=== PATIENT | male | born 1950 | race Caucasian/White ===

== ENCOUNTER 2021-02-17 01:27 | Inpatient (IN) | payer OTHER ==
[2021-02-17 22:21] VITALS: BMI 22.5
[2021-02-18] MEDS ORDERED: Acetaminophen 325 MG TAB PO PRN (03:04)
[2021-02-18] MEDS: Dexamethasone 4 mg/ml Vial SLOW IVP SCH ×4 (04:00→21:34)
[2021-02-18] MEDS: cefTRIAXone\\ROCEPHIN 1 GM in Sodium Chloride 0.9% 100 ML IVPB SCH (04:00)
[2021-02-18] MEDS ORDERED: HYDROcodone/Acetaminophen 5/325 mg Tablet PO PRN (08:13)
[2021-02-18] MEDS ORDERED: Ondansetron PF 4 MG/2 ML Vial IVP PRN (08:13)
[2021-02-18] MEDS ORDERED: Loperamide HCl 2 MG CAP PO PRN (08:13)
[2021-02-18] MEDS ORDERED: GUAIFENESIN SF SOLN 200 MG/10 ML UDCUP PO PRN (08:13)
[2021-02-18] MEDS ORDERED: Cepastat Lozenges 1 LOZ PO PRN (08:13)
[2021-02-18] MEDS ORDERED: Bisacodyl 5 MG TAB PO PRN (08:13)
[2021-02-18] MEDS ORDERED: Loratadine 10 MG TAB PO PRN (08:13)
[2021-02-18] MEDS ORDERED: Senokot S 8.6-50 MG TAB PO PRN (08:13)
[2021-02-18] MEDS ORDERED: hydrALAZINE 20 MG/ML VIAL SLOW IVP PRN (08:13)
[2021-02-18] MEDS ORDERED: FLU VACC QS2021-22(65YR UP)/PF 240 MCG/0.7 ML SYRINGE IM ONE (09:00)
[2021-02-18] MEDS ORDERED: Atorvastatin Calcium 40 MG TAB PO SCH (09:00)
[2021-02-18] MEDS ORDERED: Aspirin 81 mg Enteric Coated Tablet PO SCH (09:00)
[2021-02-18] MEDS ORDERED: Lisinopril 20 MG TAB PO SCH (09:00)
[2021-02-18] MEDS: Cholecalciferol 1,000 UNITS (25 MCG) TAB PO SCH (09:20)
[2021-02-18] MEDS: Cilostazol 100 MG TAB PO SCH ×2 (09:20→17:39)
[2021-02-18 09:32] LABS: #Lymphocytes 0.7 thou/uL (1.20-3.40); #Monocytes 0.3 thou/uL (0.11-0.59); #Neutrophils 10.2 thou/uL (1.40-6.50); %Eosinophils 0.1 % (0.0-10.0); %Lymphocytes 6.6 % (21.0-51.0); %Monocytes 2.8 % (0.0-10.0); %Neutrophils 90.5 % (42.0-75.0); Hemoglobin 13.7 g/dL (14.0-18.0); Mean Corpuscular HGB CONC 33.5 g/dL (32.0-36.0); Mean Corpuscular Hemoglobin 30.4 pg (27.0-31.0); Mean Corpuscular Volume 90.8 fL (78.0-98.0); Mean Platelet Volume 7.8 fL (7.4-10.4); Platelet Count 272 thou/uL (130-400); RBC Distribution Width 13.3 % (11.5-14.5); Red Blood Cell (RBC) Count 4.52 mill/uL (4.70-6.10); White Blood Cell (WBC) Count 11.2 thou/uL (4.8-10.8)
[2021-02-18 10:00] LABS: Anion Gap 14 mmol/L (10-20); BUN (Urea Nitrogen) 21 mg/dL (8.4-25.7); Calc. Creatinine Clearance 65 mL/min (70-130); Calcium 9.5 mg/dL (7.8-10.44); Carbon Dioxide 20 mmol/L (23-31); Cardiac Risk 5.8 (Less than 4.5); Chloride 103 mmol/L (98-107); Cholesterol 209 mg/dl (< 200 Desired); Glucose 123 mg/dL (80-115); HDL Cholesterol 36 mg/dL (>60 Neg Risk); LDL Cholesterol, Calculated 145 mg/dL; Potassium 3.8 mmol/L (3.5-5.1); Sodium 133 mmol/L (136-145); Triglycerides 142 mg/dL (Less than 150)
[2021-02-18] MEDS ORDERED: Iopamidol-370 76% 500 ML 1 ML ONE (12:29)
[2021-02-18] MEDS ORDERED: Magnevist 469MG/ML 20 ML VIAL ONE (12:37)
[2021-02-19] MEDS: Dexamethasone 4 mg/ml Vial SLOW IVP SCH ×2 (03:48→09:53)
[2021-02-19] MEDS: cefTRIAXone\\ROCEPHIN 1 GM in Sodium Chloride 0.9% 100 ML IVPB SCH (03:48)
[2021-02-19] MEDS ORDERED: hydrALAZINE 20 MG/ML VIAL SLOW IVP PRN (06:25)
[2021-02-19 08:11] VITALS: BP 162/78; TEMP 97.7
[2021-02-19] MEDS ORDERED: Atorvastatin Calcium 40 MG TAB PO SCH (09:00)
[2021-02-19] MEDS ORDERED: Lisinopril 10 MG TAB PO SCH (09:00)
[2021-02-19] MEDS ORDERED: levETIRAcetam 500 MG TAB PO SCH (09:00)
[2021-02-19] MEDS: Cholecalciferol 1,000 UNITS (25 MCG) TAB PO SCH (09:54)
[2021-02-19] MEDS: Cilostazol 100 MG TAB PO SCH (09:55)
== END 2021-02-19 12:47 | disposition home or self-care (01) | DRG 54 ==
LOC: NEURO 01:27
PROVIDERS: ADMIT Internal Medicine; ATTEND Internal Medicine
DX: C71.9 Malignant neoplasm of brain, unspecified (principal); G93.6 Cerebral edema; N39.0 Urinary tract infection, site not specified; E87.1 Hypo-osmolality and hyponatremia; Z20.822 Contact with and (suspected) exposure to COVID-19; I10 Essential (primary) hypertension; F17.210 Nicotine dependence, cigarettes, uncomplicated; I73.9 Peripheral vascular disease, unspecified; I25.10 Atherosclerotic heart disease of native coronary artery without angina pectoris; E78.5 Hyperlipidemia, unspecified; Z85.46 Personal history of malignant neoplasm of prostate; Z88.0 Allergy status to penicillin; Z79.82 Long term (current) use of aspirin; Z79.899 Other long term (current) drug therapy; Z85.51 Personal history of malignant neoplasm of bladder
CPT/HCPCS: 36415; 70553; 71260; 74177; 80048; 80061; 83930; 83935; 85025; A9579; J0696; J1100; J3490; Q9967

== ENCOUNTER 2021-03-02 15:01 | Outpatient (CLI) | payer OTHER ==
[2021-03-02 16:20] LABS: Mean Corpuscular Hemoglobin 29.8 pg (27.0-33.0); Mean Corpuscular Volume 87.5 fl (81.2-95.1); Mean Platelet Volume 10.9 fl (7.4-10.4); Platelet Count 295 10x3/uL (150-450); RBC Distribution Width 15.2 % (11.5-14.5); Red Blood Cell (RBC) Count 5.04 10x6/uL (4.32-5.72); White Blood Cell (WBC) Count 14.2 10x3/uL (3.5-10.5)
[2021-03-02 16:39] LABS: INR-International Normal Ratio 0.9; PTT 24.5 sec (22.0-33.0); Prothrombin Time 10.5 sec (9.5-12.1)
[2021-03-03 11:22] LABS: SARS-CoV-2 PCR by NAA Not Detected (NotDetected)
== END 2021-03-02 15:02 | disposition home or self-care (01) ==
LOC: LABBT 15:01
PROVIDERS: ATTEND Neurological Surgery
DX: Z01.812 Encounter for preprocedural laboratory examination (principal); Z20.822 Contact with and (suspected) exposure to COVID-19
CPT/HCPCS: 85027; 85610; 85730; U0003; U0005

== ENCOUNTER 2021-03-02 15:30 | Inpatient (IN) | payer OTHER ==
[2021-03-07] MEDS ORDERED: Lidocaine 0.5%/Epinephrine 1:200,000 50 ml Vial ONE (06:15)
[2021-03-07] MEDS ORDERED: Bacitracin Zinc Ointment 30 gm TUBE ONE (06:15)
[2021-03-07] MEDS ORDERED: Neomycin-Polymyxin 1 ML AMP ONE (06:15)
[2021-03-07] MEDS ORDERED: Thrombin 5000 UNITS/5 ML VIAL ONE (06:15)
[2021-03-07] MEDS ORDERED: Clindamycin/D5W 900 mg/50 ml Premix Bag ONE (06:20)
[2021-03-07] MEDS ORDERED: Levofloxacin 500 mg/D5W 100 ml Premix Bag ONE (06:20)
[2021-03-07] MEDS ORDERED: HYDROcodone/Acetaminophen 7.5/325 mg Tablet PO PRN (06:26)
[2021-03-07] MEDS ORDERED: Labetalol HCl 100 MG/20 ML VIAL SLOW IVP PRN (06:26)
[2021-03-07] MEDS ORDERED: hydrALAZINE 20 MG/ML VIAL SLOW IVP PRN (06:26)
[2021-03-07] MEDS ORDERED: diphenhydrAMINE 50 MG/ML VIAL IVP PRN (06:26)
[2021-03-07] MEDS ORDERED: Ondansetron PF 4 MG/2 ML Vial IVP PRN (06:26)
[2021-03-07] MEDS ORDERED: Docusate 100 MG CAP PO PRN (06:26)
[2021-03-07] MEDS ORDERED: Promethazine HCl 25 MG/ML VIAL IM PRN ×2 (06:26→09:31)
[2021-03-07] MEDS ORDERED: Acetaminophen 325 MG TAB PO PRN (06:26)
[2021-03-07] MEDS ORDERED: Mag-Al 1200 mg/1200 mg/30 ML UDCUP PO PRN (06:26)
[2021-03-07] MEDS ORDERED: Pantoprazole 40 MG GRANULES PACKET PO SCH (06:30)
[2021-03-07] MEDS ORDERED: Morphine 4 MG/ML VIAL SLOW IVP PRN (06:39)
[2021-03-07] MEDS ORDERED: Dexmedetomidine 200 MCG/2 ML VIAL ONE (06:40)
[2021-03-07] MEDS ORDERED: levETIRAcetam 500 MG/100 ML PREMIX BAG ONE (06:41)
[2021-03-07] MEDS ORDERED: Albumin 25% 0 ML ONE ×2 (06:41)
[2021-03-07] MEDS ORDERED: levETIRAcetam in NS 0 ML ONE (06:41)
[2021-03-07] MEDS ORDERED: Vecuronium 10 MG VIAL ONE (06:42)
[2021-03-07] MEDS ORDERED: Propofol 1,000 MG/100 ML VIAL IV ONE (06:48)
[2021-03-07] MEDS ORDERED: Famotidine/PF 20 mg/2ml Vial ONE (06:58)
[2021-03-07] MEDS ORDERED: Lidocaine 2% Jelly 5 ML TUBE ONE (07:00)
[2021-03-07] MEDS ORDERED: Pantoprazole 40 MG VIAL IVP SCH (07:00)
[2021-03-07] MEDS ORDERED: Midazolam HCl 2 mg/2 ml Vial ONE (07:00)
[2021-03-07] MEDS ORDERED: Dexamethasone 20 MG/5 ML VIAL ONE (07:05)
[2021-03-07] MEDS ORDERED: Lidocaine 1% PF 5 ML VIAL ONE ×2 (07:05)
[2021-03-07] MEDS ORDERED: Rocuronium Bromide 10 MG/ML (10ML VIAL) ONE (07:05)
[2021-03-07] MEDS ORDERED: Succinylcholine 200 MG/10 ml SYRINGE FS ONE (07:05)
[2021-03-07] MEDS ORDERED: Ondansetron PF 4 MG/2 ML Vial ONE (07:05)
[2021-03-07] MEDS ORDERED: PROPOFOL 200 MG/20 ML VIAL ONE (07:05)
[2021-03-07] MEDS ORDERED: Fentanyl 100 MCG/2 ML VIAL ONE (07:32)
[2021-03-07] MEDS ORDERED: Dexamethasone 1 MG TAB PO SCH (09:00)
[2021-03-07] MEDS ORDERED: SUGAMMADEX SODIUM 200 MG/2 ML VIAL ONE (09:25)
[2021-03-07] MEDS ORDERED: Promethazine HCl 25 MG/ML VIAL IVPB PRN (09:31)
[2021-03-07] MEDS ORDERED: Ondansetron HCl/PF 4 MG/2 ML Vial IVP PRN (09:31)
[2021-03-07] MEDS: Clindamycin/D5W 900 MG in Premix Bag 1 BAG IVPB SCH ×3 (11:18→16:55)
[2021-03-07] MEDS: Dexamethasone 4 mg/ml Vial SLOW IVP SCH ×3 (11:18→16:54)
[2021-03-07] MEDS: Sodium Chloride 0.9% 1,000 ML IV SCH ×2 (11:18→16:33)
[2021-03-07] MEDS: levETIRAcetam 500 MG TAB PO SCH ×2 (11:19→19:35)
[2021-03-07] MEDS: Cholecalciferol 1,000 UNITS (25 MCG) TAB PO SCH (11:20)
[2021-03-07] MEDS: Lisinopril 10 MG TAB PO SCH (11:20)
[2021-03-07] MEDS: Pantoprazole 40 MG VIAL IVP SCH ×2 (11:22→19:35)
[2021-03-07] MEDS: HYDROcodone/Acetaminophen 10/325 mg Tablet PO PRN ×2 (11:22→19:35)
[2021-03-07] MEDS: hydrALAZINE 20 MG/ML VIAL SLOW IVP PRN ×2 (11:23→12:46)
[2021-03-07 12:04] VITALS: BMI 21.7
[2021-03-07] MEDS ORDERED: niCARdipine 40MG In NaCl 40 MG/200 ML BAG IVPB PRN (13:00)
[2021-03-07] MEDS ORDERED: niCARdipine 25 MG in Sodium Chloride 0.9% 250 ML 250 ML IVPB SCH (13:30)
[2021-03-07] MEDS: Atorvastatin Calcium 40 MG TAB PO SCH (19:35)
[2021-03-07] MEDS ORDERED: niCARdipine 25 MG in Sodium Chloride 0.9% 250 ML 240 ML IVPB PRN (20:10)
[2021-03-07] MEDS ORDERED: Polyethylene Glycol 3350 17 GM Packet PO PRN (20:13)
[2021-03-07] MEDS ORDERED: Electrolyte Replacement Protocol 1 EACH FS PRN (20:15)
[2021-03-07] MEDS: Docusate 100 MG CAP PO SCH (20:52)
[2021-03-08] MEDS: Dexamethasone 4 mg/ml Vial SLOW IVP SCH ×5 (00:10→23:54)
[2021-03-08] MEDS: HYDROcodone/Acetaminophen 10/325 mg Tablet PO PRN (01:32)
[2021-03-08] MEDS: hydrALAZINE 20 MG/ML VIAL SLOW IVP PRN (02:18)
[2021-03-08 04:59] LABS: Hemoglobin 15.6 g/dL (14.0-18.0); Mean Corpuscular HGB CONC 34.6 g/dL (32.0-36.0); Mean Corpuscular Hemoglobin 31.4 pg (27.0-31.0); Mean Corpuscular Volume 90.9 fL (78.0-98.0); Red Blood Cell (RBC) Count 4.97 mill/uL (4.70-6.10); White Blood Cell (WBC) Count 20.4 thou/uL (4.8-10.8)
[2021-03-08 05:00] LABS: Mean Platelet Volume 8.3 fL (7.4-10.4); Platelet Count 221 thou/uL (130-400)
[2021-03-08] MEDS: Sodium Chloride 0.9% 1,000 ML IV SCH (05:22)
[2021-03-08 05:26] LABS: Anion Gap 11 mmol/L (10-20); BUN (Urea Nitrogen) 24 mg/dL (8.4-25.7); Calc. Creatinine Clearance 62 mL/min (70-130); Calcium 8.7 mg/dL (7.8-10.44); Carbon Dioxide 23 mmol/L (23-31); Chloride 96 mmol/L (98-107); Glucose 118 mg/dL (80-115); Magnesium 2.2 mg/dL (1.6-2.6); Sodium 125 mmol/L (136-145)
[2021-03-08 06:11] LABS: Band 12 % (5-11); Lymphocytes 8 % (21-51); MDiff Complete? YES; Monocytes 2 % (0-10); Neutrophil 77 % (42-75); Reactive Lymphocytes 1 % (0-10)
[2021-03-08] MEDS: Cholecalciferol 1,000 UNITS (25 MCG) TAB PO SCH (08:20)
[2021-03-08] MEDS: Lisinopril 10 MG TAB PO SCH (08:20)
[2021-03-08] MEDS: Multivit, Therapeutic 1 TAB PO SCH (08:20)
[2021-03-08] MEDS: Docusate 100 MG CAP PO SCH ×2 (08:20→20:50)
[2021-03-08] MEDS: levETIRAcetam 500 MG TAB PO SCH ×2 (08:20→20:50)
[2021-03-08] MEDS: Pantoprazole 40 MG VIAL IVP SCH ×2 (08:21→20:49)
[2021-03-08 14:48] LABS: Anion Gap 18 mmol/L (10-20); BUN (Urea Nitrogen) 26 mg/dL (8.4-25.7); Calc. Creatinine Clearance 59 mL/min (70-130); Carbon Dioxide 14 mmol/L (23-31); Chloride 97 mmol/L (98-107); Glucose 95 mg/dL (80-115); Potassium 5.7 mmol/L (3.5-5.1); Sodium 123 mmol/L (136-145)
[2021-03-08] MEDS ORDERED: Sodium Bicarbonate Tab 325 MG TAB PO SCH (16:15)
[2021-03-08] MEDS: Sodium Bicarbonate Tab 325 MG TAB PO SCH (20:50)
[2021-03-08] MEDS: Atorvastatin Calcium 40 MG TAB PO SCH (20:50)
[2021-03-09 04:43] LABS: Anion Gap 12 mmol/L (10-20); BUN (Urea Nitrogen) 25 mg/dL (8.4-25.7); Calc. Creatinine Clearance 58 mL/min (70-130); Calcium 8.5 mg/dL (7.8-10.44); Carbon Dioxide 24 mmol/L (23-31); Chloride 98 mmol/L (98-107); Glucose 115 mg/dL (83-110); Potassium 5.2 mmol/L (3.5-5.1); Sodium 129 mmol/L (136-145)
[2021-03-09] MEDS: Dexamethasone 4 mg/ml Vial SLOW IVP SCH ×3 (06:12→17:06)
[2021-03-09] MEDS: Multivit, Therapeutic 1 TAB PO SCH (09:50)
[2021-03-09] MEDS: Cholecalciferol 1,000 UNITS (25 MCG) TAB PO SCH (09:50)
[2021-03-09] MEDS: Pantoprazole 40 MG VIAL IVP SCH (09:50)
[2021-03-09] MEDS: Sodium Bicarbonate Tab 325 MG TAB PO SCH (09:51)
[2021-03-09] MEDS: Docusate 100 MG CAP PO SCH (09:51)
[2021-03-09] MEDS: levETIRAcetam 500 MG TAB PO SCH (09:51)
[2021-03-09] MEDS: hydrALAZINE 20 MG/ML VIAL SLOW IVP PRN (17:06)
[2021-03-09 18:58] VITALS: BP 143/77; TEMP 97.7
[2021-03-10] MEDS ORDERED: Dexamethasone 4 mg/ml Vial SLOW IVP SCH (12:00)
[2021-03-13] MEDS ORDERED: Dexamethasone 4 mg/ml Vial SLOW IVP SCH (12:00)
== END 2021-03-09 18:58 | disposition home or self-care (01) | DRG 25 ==
LOC: SURG A 03-07 06:00 → CCU 03-07 10:41 → SURG A 03-08 07:42
PROVIDERS: ADMIT Neurological Surgery; ATTEND Neurological Surgery
PROC: 00B00ZZ Excision of Brain, Open Approach (ICD-10-PCS; principal; 2021-03-07)
DX: C71.3 Malignant neoplasm of parietal lobe (principal); G93.6 Cerebral edema; E87.1 Hypo-osmolality and hyponatremia; K59.00 Constipation, unspecified; E07.81 Sick-euthyroid syndrome; I10 Essential (primary) hypertension; E78.5 Hyperlipidemia, unspecified; F17.210 Nicotine dependence, cigarettes, uncomplicated; Z88.0 Allergy status to penicillin; Z92.21 Personal history of antineoplastic chemotherapy; Z91.81 History of falling; Z85.46 Personal history of malignant neoplasm of prostate; Z85.51 Personal history of malignant neoplasm of bladder; Z80.1 Family history of malignant neoplasm of trachea, bronchus and lung; Z82.49 Family history of ischemic heart disease and other diseases of the circulatory system; Z79.82 Long term (current) use of aspirin; Z79.899 Other long term (current) drug therapy
CPT/HCPCS: 36415; 70553; 80048; 83735; 84443; 84481; 85025; 86850; 86900; 86901; 88307; 88331; 88334; 88341; 88342; C1713; C1769; C9113; J0360; J1100; J1200; J1642; J1953; J1956; J2001; J2250; J2405; J2704; J3010; J3490; J7050; P9047; S0028

== ENCOUNTER 2021-08-02 11:52 | Outpatient (CLI) | payer OTHER | END 2021-08-02 11:53 | disposition home or self-care (01) | LOC: MRI 11:52 | PROVIDERS: ATTEND Radiology Radiation Oncology | DX: C71.9 Malignant neoplasm of brain, unspecified (principal); Z98.890 Other specified postprocedural states | CPT/HCPCS: 70553 ==

== ENCOUNTER 2021-10-16 21:25 | Inpatient (IN) | payer MEDICARE, OTHER ==
[2021-10-17] MEDS ORDERED: Ondansetron ODT 8 MG TAB PO PRN (01:02)
[2021-10-17] MEDS ORDERED: Acetaminophen 650 MG Suppository PR PRN (01:04)
[2021-10-17] MEDS ORDERED: Ondansetron PF 4 MG/2 ML Vial IVP PRN (01:15)
[2021-10-17] MEDS ORDERED: Acetaminophen 325 MG TAB PO PRN (01:15)
[2021-10-17 01:19] VITALS: BMI 20.3
[2021-10-17] MEDS ORDERED: Dexamethasone 10 MG/ML VIAL SLOW IVP SCH (01:30)
[2021-10-17] MEDS ORDERED: hydrALAZINE 20 MG/ML VIAL SLOW IVP PRN (02:41)
[2021-10-17] MEDS: Sodium Chloride 0.9% 1,000 ML IV SCH ×2 (02:54→20:40)
[2021-10-17] MEDS: Nicotine 21 MG PATCH TD SCH (02:54)
[2021-10-17 05:14] LABS: #Lymphocytes 0.3 thou/uL (1.20-3.40); #Monocytes 0.2 thou/uL (0.11-0.59); %Basophils 0.2 % (0.0-1.0); %Eosinophils 0.6 % (0.0-10.0); %Lymphocytes 5.7 % (21.0-51.0); %Monocytes 5.4 % (0.0-10.0); %Neutrophils 88.1 % (42.0-75.0); Hemoglobin 11.6 g/dL (14.0-18.0); Mean Corpuscular HGB CONC 34.6 g/dL (32.0-36.0); Mean Corpuscular Hemoglobin 32.8 pg (27.0-31.0); Mean Corpuscular Volume 94.8 fL (78.0-98.0); Mean Platelet Volume 7.9 fL (7.4-10.4); Platelet Count 125 thou/uL (130-400); RBC Distribution Width 16.3 % (11.5-14.5); Red Blood Cell (RBC) Count 3.54 mill/uL (4.70-6.10); White Blood Cell (WBC) Count 4.5 thou/uL (4.8-10.8)
[2021-10-17 05:30] LABS: ALT (SGPT) 20 U/L (8-55); AST (SGOT) 18 U/L (5-34); Albumin 3.5 g/dL (3.4-4.8); Alkaline Phosphatase 67 U/L (40-110); Anion Gap 10 mmol/L (10-20); BUN (Urea Nitrogen) 11 mg/dL (8.4-25.7); Bilirubin, Total 0.3 mg/dL (0.2-1.2); Calc. Creatinine Clearance 58 mL/min (70-130); Calcium 9.2 mg/dL (7.8-10.44); Carbon Dioxide 21 mmol/L (23-31); Cardiac Risk 2.8 (Less than 4.5); Chloride 106 mmol/L (98-107); Cholesterol 94 mg/dl (< 200 Desired); Estimated GFR 80; Globulin 2.3 g/dL (2.4-3.5); Glucose 102 mg/dL (83-110); HDL Cholesterol 33 mg/dL (>60 Neg Risk); LDL Cholesterol, Calculated 51 mg/dL; Protein, Total 5.8 g/dL (5.8-8.1); Sodium 133 mmol/L (136-145); Triglycerides 52 mg/dL (Less than 150)
[2021-10-17] MEDS: Cilostazol 100 MG TAB PO SCH (08:48)
[2021-10-17] MEDS: Aspirin 81 mg Enteric Coated Tablet PO SCH (08:48)
[2021-10-17] MEDS: Dexamethasone 4 MG TAB PO SCH ×3 (08:48→17:47)
[2021-10-17] MEDS ORDERED: Famotidine/PF 20 mg/2ml Vial SLOW IVP SCH ×2 (09:00)
[2021-10-17] MEDS ORDERED: Lisinopril 10 MG TAB PO SCH (09:00)
[2021-10-17] MEDS ORDERED: Famotidine 20 MG TAB PO SCH (09:00)
[2021-10-17] MEDS: Famotidine 20 MG TAB PO SCH ×2 (10:42→20:41)
[2021-10-17] MEDS: cefTRIAXone\\ROCEPHIN 1 GM in Sodium Chloride 0.9% 100 ML IVPB SCH (14:16)
[2021-10-17] MEDS ORDERED: Atorvastatin Calcium 40 MG TAB PO SCH (21:00)
[2021-10-17] MEDS ORDERED: Acetaminophen 500 MG TAB PO SCH (21:00)
[2021-10-18] MEDS: Dexamethasone 4 MG TAB PO SCH ×3 (00:26→11:16)
[2021-10-18] MEDS: Nicotine 21 MG PATCH TD SCH (02:44)
[2021-10-18] MEDS ORDERED: Dexamethasone 4 MG TAB PO SCH (08:00)
[2021-10-18] MEDS: Aspirin 81 mg Enteric Coated Tablet PO SCH (10:19)
[2021-10-18] MEDS: Cilostazol 100 MG TAB PO SCH (10:19)
[2021-10-18] MEDS: Famotidine 20 MG TAB PO SCH (10:19)
[2021-10-18] MEDS ORDERED: Nicotine 21 MG PATCH TD SCH (10:30)
[2021-10-18] MEDS ORDERED: Acetaminophen 500 MG TAB PO PRN (10:57)
[2021-10-18] MEDS: cefTRIAXone\\ROCEPHIN 1 GM in Sodium Chloride 0.9% 100 ML IVPB SCH (14:27)
[2021-10-18] MEDS: Sodium Chloride 0.9% 1,000 ML IV SCH (14:33)
[2021-10-18 16:01] VITALS: TEMP 98.1
[2021-10-18 16:22] VITALS: BP 143/80
[2021-10-19] MEDS ORDERED: Nicotine 21 MG PATCH TD SCH (09:00)
== END 2021-10-18 18:58 | disposition home health service (06) | DRG 54 ==
LOC: NEURO 21:25 → OBSVTOIN 10-17 10:59
PROVIDERS: ADMIT Family Medicine; ATTEND Family Medicine
DX: C71.0 Malignant neoplasm of cerebrum, except lobes and ventricles (principal); G93.6 Cerebral edema; N30.01 Acute cystitis with hematuria; E87.1 Hypo-osmolality and hyponatremia; G81.94 Hemiplegia, unspecified affecting left nondominant side; Z66 Do not resuscitate; E86.0 Dehydration; E78.5 Hyperlipidemia, unspecified; F17.210 Nicotine dependence, cigarettes, uncomplicated; R79.89 Other specified abnormal findings of blood chemistry; E78.2 Mixed hyperlipidemia; I10 Essential (primary) hypertension; E78.00 Pure hypercholesterolemia, unspecified; R29.810 Facial weakness; Z28.21 Immunization not carried out because of patient refusal; Z85.51 Personal history of malignant neoplasm of bladder; Z85.46 Personal history of malignant neoplasm of prostate; Z79.899 Other long term (current) drug therapy; Z79.82 Long term (current) use of aspirin; Z80.1 Family history of malignant neoplasm of trachea, bronchus and lung; Z88.0 Allergy status to penicillin; Z71.6 Tobacco abuse counseling; Z87.440 Personal history of urinary (tract) infections
CPT/HCPCS: 36415; 80053; 80061; 85025; 87086; 93880; 96374; 96375; G0378; J0696; J1100; J3490; J7050; J8540

== ENCOUNTER 2022-03-23 11:12 | Inpatient (IN) | payer OTHER ==
[2022-03-23 12:26] LABS: Hemoglobin 13.1 g/dL (14.0-18.0); Mean Corpuscular HGB CONC 32.7 g/dL (32.0-36.0); Mean Corpuscular Hemoglobin 32.6 pg (27.0-31.0); Mean Corpuscular Volume 99.8 fl (78.0-98.0); Mean Platelet Volume 8.6 fL (7.4-10.4); Platelet Count 167 10x3/uL (130-400); RBC Distribution Width 14.8 % (11.5-14.5)
[2022-03-23 12:44] LABS: ALT (SGPT) 30 U/L (8-55); AST (SGOT) 38 U/L (5-34); Albumin 3.5 g/dL (3.4-4.8); Alkaline Phosphatase 92 U/L (40-110); Anion Gap 14 mmol/L (10-20); BUN (Urea Nitrogen) 9 mg/dL (8.4-25.7); Bilirubin, Total 0.3 mg/dL (0.2-1.2); Calc. Creatinine Clearance 0 mL/min (70-130); Carbon Dioxide 17 mmol/L (23-31); Chloride 106 mmol/L (98-107); Estimated GFR 95; Globulin 2.6 g/dL (2.4-3.5); Glucose 100 mg/dL (83-110); Potassium 3.5 mmol/L (3.5-5.1); Protein, Total 6.1 g/dL (5.8-8.1); Sodium 133 mmol/L (136-145)
[2022-03-23 12:46] LABS: Band 5 % (5-11); Burr Cells SLIGHT = 2-5 cells (100X) (0-1/hpf); Eosinophils 1 % (0-10); Lymphocytes 20 % (21-51); MDiff Complete? YES; Monocytes 4 % (0-10); Neutrophil 70 % (42-75); Ovalocytes SLIGHT = 2-5 cells (100X) (0-1/hpf); Platelet Morphology Comment Appears Adequate
[2022-03-23] MEDS ORDERED: Acetaminophen 325 MG TAB PO PRN (13:37)
[2022-03-23] MEDS ORDERED: Senokot S 8.6-50 MG TAB PO PRN (13:37)
[2022-03-23] MEDS ORDERED: Ondansetron ODT 4 MG TAB PO PRN (13:37)
[2022-03-23] MEDS ORDERED: Electrolyte Replacement Protocol 1 EACH FS SCH (13:45)
[2022-03-23] MEDS ORDERED: Potassium Chloride 20 MEQ TAB PO SCH (14:15)
[2022-03-23 18:16] LABS: SARS-CoV-2 NAA Rapid Test DETECTED (NotDetected)
[2022-03-23] MEDS ORDERED: Benzonatate 100 MG CAP PO PRN (18:28)
[2022-03-23] MEDS ORDERED: Albuterol 200 PUFF (6.7GM INHALER) INH PRN (18:28)
[2022-03-23] MEDS: Cefepime 1 GM in Sodium Chloride 0.9% 100 ML IVPB SCH (20:38)
[2022-03-23] MEDS: Famotidine 20 MG TAB PO SCH (20:39)
[2022-03-23] MEDS: Atorvastatin Calcium 40 MG TAB PO SCH (20:39)
[2022-03-23] MEDS: Cilostazol 100 MG TAB PO SCH (20:39)
[2022-03-23] MEDS ORDERED: REMDESIVIR 200 MG in Sodium Chloride 0.9% 250 ML 210 ML IV SCH (21:00)
[2022-03-24 07:01] LABS: #Lymphocytes 0.9 thou/uL (1.20-3.40); #Monocytes 0.5 thou/uL (0.11-0.59); %Basophils 0.9 % (0.0-1.0); %Eosinophils 1.4 % (0.0-10.0); %Lymphocytes 25.7 % (21.0-51.0); %Monocytes 13.5 % (0.0-10.0); %Neutrophils 58.5 % (42.0-75.0); Hemoglobin 12.9 g/dL (14.0-18.0); Mean Corpuscular HGB CONC 34.5 g/dL (32.0-36.0); Mean Corpuscular Hemoglobin 33.6 pg (27.0-31.0); Mean Corpuscular Volume 97.3 fl (78.0-98.0); Mean Platelet Volume 8.1 fL (7.4-10.4); Platelet Count 159 10x3/uL (130-400); RBC Distribution Width 14.8 % (11.5-14.5); Red Blood Cell (RBC) Count 3.84 mill/uL (4.70-6.10); White Blood Cell (WBC) Count 3.4 10x3/uL (4.8-10.8)
[2022-03-24 07:21] LABS: Anion Gap 10 mmol/L (10-20); BUN (Urea Nitrogen) 9 mg/dL (8.4-25.7); Calc. Creatinine Clearance 76 mL/min (70-130); Carbon Dioxide 18 mmol/L (23-31); Chloride 109 mmol/L (98-107); Potassium 4.1 mmol/L (3.5-5.1); Sodium 133 mmol/L (136-145)
[2022-03-24 07:22] LABS: ALT (SGPT) 34 U/L (8-55); AST (SGOT) 40 U/L (5-34); Albumin 3.4 g/dL (3.4-4.8); Alkaline Phosphatase 87 U/L (40-110); Bilirubin, Total 0.2 mg/dL (0.2-1.2); Calcium 8.8 mg/dL (7.8-10.44); Estimated GFR 94; Globulin 1.8 g/dL (2.4-3.5); Glucose 92 mg/dL (83-110); Protein, Total 5.2 g/dL (5.8-8.1)
[2022-03-24] MEDS: Ascorbic Acid 500 mg Chewable Tablet PO SCH (10:08)
[2022-03-24] MEDS: Famotidine 20 MG TAB PO SCH ×2 (10:08→21:41)
[2022-03-24] MEDS: Cefepime 1 GM in Sodium Chloride 0.9% 100 ML IVPB SCH (10:08)
[2022-03-24] MEDS: Lisinopril 5 MG TAB PO SCH (10:08)
[2022-03-24] MEDS: Zinc Sulfate 220 MG CAP PO SCH (10:09)
[2022-03-24] MEDS: Aspirin 81 mg Enteric Coated Tablet PO SCH (10:09)
[2022-03-24] MEDS: Cholecalciferol (Vitamin D3) 400 UNITS TAB PO SCH (10:09)
[2022-03-24] MEDS: Cilostazol 100 MG TAB PO SCH ×2 (10:09→21:41)
[2022-03-24] MEDS: Cefepime 2 GM in Sodium Chloride 0.9% 100 ML IVPB SCH (21:41)
[2022-03-24] MEDS: Atorvastatin Calcium 40 MG TAB PO SCH (21:41)
[2022-03-24] MEDS: REMDESIVIR 100 MG in Sodium Chloride 0.9% 250 ML 230 ML IV SCH (21:42)
[2022-03-25 06:55] LABS: #Lymphocytes 0.8 thou/uL (1.20-3.40); #Monocytes 0.4 thou/uL (0.11-0.59); #Neutrophils 1.8 thou/uL (1.40-6.50); %Eosinophils 1.4 % (0.0-10.0); %Monocytes 11.9 % (0.0-10.0); %Neutrophils 59.7 % (42.0-75.0); Hemoglobin 12.6 g/dL (14.0-18.0); Mean Corpuscular HGB CONC 33.2 g/dL (32.0-36.0); Mean Corpuscular Hemoglobin 33.1 pg (27.0-31.0); Mean Corpuscular Volume 99.6 fl (78.0-98.0); Platelet Count 146 10x3/uL (130-400); RBC Distribution Width 14.7 % (11.5-14.5)
[2022-03-25 07:20] LABS: ALT (SGPT) 40 U/L (8-55); AST (SGOT) 41 U/L (5-34); Albumin 3.2 g/dL (3.4-4.8); Alkaline Phosphatase 83 U/L (40-110); Anion Gap 10 mmol/L (10-20); BUN (Urea Nitrogen) 10 mg/dL (8.4-25.7); Bilirubin, Total 0.3 mg/dL (0.2-1.2); Calc. Creatinine Clearance 80 mL/min (70-130); Calcium 8.8 mg/dL (7.8-10.44); Carbon Dioxide 19 mmol/L (23-31); Chloride 107 mmol/L (98-107); Estimated GFR 96; Globulin 2.4 g/dL (2.4-3.5); Glucose 73 mg/dL (83-110); Potassium 3.3 mmol/L (3.5-5.1); Protein, Total 5.6 g/dL (5.8-8.1); Sodium 133 mmol/L (136-145)
[2022-03-25] MEDS ORDERED: Potassium Chloride 20 MEQ TAB PO SCH ×2 (08:00→21:15)
[2022-03-25] MEDS: Cefepime 2 GM in Sodium Chloride 0.9% 100 ML IVPB SCH (08:27)
[2022-03-25] MEDS: Cilostazol 100 MG TAB PO SCH ×2 (08:27→20:56)
[2022-03-25] MEDS: Zinc Sulfate 220 MG CAP PO SCH (08:28)
[2022-03-25] MEDS: Ascorbic Acid 500 mg Chewable Tablet PO SCH (08:28)
[2022-03-25] MEDS: Cholecalciferol (Vitamin D3) 400 UNITS TAB PO SCH (08:28)
[2022-03-25] MEDS: Lisinopril 5 MG TAB PO SCH (08:28)
[2022-03-25] MEDS: Aspirin 81 mg Enteric Coated Tablet PO SCH (08:28)
[2022-03-25] MEDS: Famotidine 20 MG TAB PO SCH ×2 (08:28→20:57)
[2022-03-25 17:35] LABS: Potassium 3.5 mmol/L (3.5-5.1)
[2022-03-25] MEDS: Atorvastatin Calcium 40 MG TAB PO SCH (20:56)
[2022-03-25] MEDS: REMDESIVIR 100 MG in Sodium Chloride 0.9% 250 ML 230 ML IV SCH (20:56)
[2022-03-26] MEDS: Aspirin 81 mg Enteric Coated Tablet PO SCH (08:52)
[2022-03-26] MEDS: Ascorbic Acid 500 mg Chewable Tablet PO SCH (08:52)
[2022-03-26] MEDS: Cholecalciferol (Vitamin D3) 400 UNITS TAB PO SCH (08:52)
[2022-03-26] MEDS: Lisinopril 5 MG TAB PO SCH (08:52)
[2022-03-26] MEDS: Famotidine 20 MG TAB PO SCH ×2 (08:53→20:33)
[2022-03-26] MEDS: Zinc Sulfate 220 MG CAP PO SCH (08:53)
[2022-03-26] MEDS: Cilostazol 100 MG TAB PO SCH ×2 (08:53→20:33)
[2022-03-26] MEDS: Atorvastatin Calcium 40 MG TAB PO SCH (20:33)
[2022-03-27] MEDS: Famotidine 20 MG TAB PO SCH ×2 (08:56→21:01)
[2022-03-27] MEDS: Cilostazol 100 MG TAB PO SCH ×2 (08:56→21:01)
[2022-03-27] MEDS: Lisinopril 5 MG TAB PO SCH (08:56)
[2022-03-27] MEDS: Zinc Sulfate 220 MG CAP PO SCH (08:56)
[2022-03-27] MEDS: Cholecalciferol (Vitamin D3) 400 UNITS TAB PO SCH (08:56)
[2022-03-27] MEDS: Aspirin 81 mg Enteric Coated Tablet PO SCH (08:56)
[2022-03-27] MEDS: Ascorbic Acid 500 mg Chewable Tablet PO SCH (08:56)
[2022-03-27] MEDS: Atorvastatin Calcium 40 MG TAB PO SCH (21:01)
[2022-03-28] MEDS: Cholecalciferol (Vitamin D3) 400 UNITS TAB PO SCH ×2 (09:35→13:12)
[2022-03-28] MEDS: Famotidine 20 MG TAB PO SCH ×4 (09:35→21:00)
[2022-03-28] MEDS: Ascorbic Acid 500 mg Chewable Tablet PO SCH ×2 (09:35→13:12)
[2022-03-28] MEDS: Aspirin 81 mg Enteric Coated Tablet PO SCH ×2 (09:35→13:12)
[2022-03-28] MEDS: Lisinopril 5 MG TAB PO SCH ×2 (09:35→13:00)
[2022-03-28] MEDS: Cilostazol 100 MG TAB PO SCH ×5 (09:35→21:00)
[2022-03-28] MEDS: Zinc Sulfate 220 MG CAP PO SCH ×2 (09:36→13:13)
[2022-03-28] MEDS: Atorvastatin Calcium 40 MG TAB PO SCH (20:53)
[2022-03-29] MEDS: Lisinopril 5 MG TAB PO SCH (09:36)
[2022-03-29] MEDS: Cholecalciferol (Vitamin D3) 400 UNITS TAB PO SCH (09:37)
[2022-03-29] MEDS: Famotidine 20 MG TAB PO SCH (09:37)
[2022-03-29] MEDS: Cilostazol 100 MG TAB PO SCH (09:37)
[2022-03-29] MEDS: Ascorbic Acid 500 mg Chewable Tablet PO SCH (09:37)
[2022-03-29] MEDS: Aspirin 81 mg Enteric Coated Tablet PO SCH (09:37)
[2022-03-29] MEDS: Zinc Sulfate 220 MG CAP PO SCH (09:37)
[2022-03-29 15:49] VITALS: BP 146/82; TEMP 97.4
== END 2022-03-29 19:15 | disposition swing bed (61) | DRG 177 ==
LOC: ERS 11:12 → ERHOLD 11:52 → SJJU 15:12 → OBSVTOIN 03-26 10:16
PROVIDERS: ADMIT Internal Medicine; ATTEND Internal Medicine
PROC: XW033E5 Introduction of Remdesivir Anti-infective into Peripheral Vein, Percutaneous Approach, New Technology Group 5 (ICD-10-PCS; principal; 2022-03-23)
PROC: 8E0ZXY6 Isolation (ICD-10-PCS; 2022-03-23)
DX: U07.1 COVID-19 (principal); G93.41 Metabolic encephalopathy; C71.0 Malignant neoplasm of cerebrum, except lobes and ventricles; N39.0 Urinary tract infection, site not specified; E78.5 Hyperlipidemia, unspecified; I10 Essential (primary) hypertension; F17.210 Nicotine dependence, cigarettes, uncomplicated; M25.512 Pain in left shoulder; Z88.0 Allergy status to penicillin; Z88.8 Allergy status to other drugs, medicaments and biological substances; Z79.899 Other long term (current) drug therapy; Z79.82 Long term (current) use of aspirin; Z85.51 Personal history of malignant neoplasm of bladder; Z85.46 Personal history of malignant neoplasm of prostate; Z87.440 Personal history of urinary (tract) infections; Z90.49 Acquired absence of other specified parts of digestive tract; Z90.89 Acquired absence of other organs; Z98.890 Other specified postprocedural states
CPT/HCPCS: 36415; 80053; 85025; 86140; 96365; 96366; 96367; 96376; 99285; G0378; J0248; J0692; J3490; J7050; U0002